=== PATIENT | male | born 1950 | race Caucasian/White ===

== ENCOUNTER 2016-11-28 00:59 | Day surgery (SDC) | payer MEDICARE, MEDICAID ==
[~2016-11-28] VITALS: Ht 177.8 cm; Wt 63.6 kg
[2016-11-28] VITALS (10 sets, daily range): BP systolic 118–149; BP diastolic 63–78; PULSE 52–61; RESP 16–17; O2SAT 96–98
[~2016-11-28 00:59] MED LIST: ALBU18HF INH; ATOR10TA66 PO; OXYC-466 PO; TERA10CA5 PO
[2016-11-28 10:24] LABS: BASOPHILS % (AUTO) 0.7 % (0-3); EOSINOPHILS % (AUTO) 6.6 % (0-5); MONOCYTES % (AUTO) 7.5 % (4-12); Mean Corpuscular Hemoglobin 29.5 pg (27.0-35.0); Mean Corpuscular Volume 91.5 fL (81-100); NEUTROPHILS % (AUTO) 72.8 % (40-74); Platelet Count 173 bil/L (150-400)
[2016-11-28 10:40] LABS: INR 1.06 ratio
[2016-11-28] MEDS ORDERED: Hydrocortisone 50 mg/mL 2 mL Inj ONE (10:57)
[2016-11-28] MEDS ORDERED: Hydrocortisone 50 mg/mL 2 mL Inj IV ONE (11:05)
[2016-11-28] MEDS ORDERED: Nitroglycerin 50 mg/250 mL D5W 50,000 MCG in IV Premix 1 EACH IV ONE (13:58)
[2016-11-28] MEDS ORDERED: HEPARIN IV ONE (13:58)
[2016-11-28] MEDS ORDERED: Heparin 1,000 Units/500 mL NS 1,000 UNIT in IV Premix 1 EACH IV ONE (13:58)
[2016-11-28] MEDS ORDERED: [UNRECOGNIZED DRUG - OTHER] IV ONE (13:58)
[2016-11-28] MEDS ORDERED: Heparin 1,000 Unit/mL 10 mL Inj IVPUSH ONE (14:02)
[2016-11-28] MEDS ORDERED: Heparin 1,000 Unit/mL 10 mL Inj ONE (14:06)
[2016-11-28] MEDS ORDERED: Heparin 5,000 Unit/mL Inj SUBQ ONE (14:08)
[2016-11-28] MEDS ORDERED: fentaNYL-PF 50 mCg/mL 2 mL Inj ONE (14:33)
[2016-11-28] MEDS ORDERED: Verapamil 2.5 mg/mL 2 mL Inj ONE (14:50)
--- NOTE | 2016-11-28 15:33 | PCM.CVCATH ---
Cardiac Cath Report Date of Service Nov 28, 2016 Primary Indication Non-sustained VT during stress test Procedure coronary angiography, left heart cath Vascular Access Right radial artery using 5 Fr slender sheath, closure with TR band. Diagnostic Catheters Left main: [place] 4.0, 5 Fr RCA: [place] 4.0, 5 Fr Procedure Details Coronary angiography details: The patient was brought to the cardiac catheterization lab in the fasting state. Patient was laid supine on the cardiac catheterization table and the right forearm was prepped and draped in the usual sterile fashion. One percent Xylocaine was infiltrated over the right radial artery. Vascular access was then achieved under ultrasound guidance. Guide wire was used to advance the catheter through the sheath and up into aortic sinuses. After coronary angiography was completed, guide wire was advanced through the catheter ahead of the tip of the catheter and the guide wire along with the catheter were pulled together out of the sheath. Medications/Fluoro Time Medications administered: 1.Fentanyl: 50 mcg IV 2. Midazolam: 2 mg IV 3. Heparin: 5000 units IV 4. Nitroglycerin: 700 mcg IA 5. Verapamil: 1 mg IA Due to contrast allergy, patient was pre-medicated with hydrocortisone 100mg IV X1 and benadryl 50mg IV X1 in the holding area prior to the start of the case. Fluoroscopy Time: 2.5 minutes, 313 mGy Contrast (Isovue): 70 mls Blood loss: 5 mls Findings 1) Coronary angiography: Right dominance a. Left main is normal caliber vessel with no angiogrpahic disease. b. LAD is normal caliber with mild luminal irregularities. There is a medium caliber diagonal artery with no angiographic disease. c. LCx is normal caliber with minimal luminal irregularities. There are two medium caliber obtuse marginal arteries with no angiographic disease. d. RCA is normal caliber tortuous vessel with plaque in the proximal vessel causing 20% stenosis. 2) Left Heart catheterization: a. LVEDP is normal at 13 mmHg. b. No significant transaortic gradient on catheter pull-back. Complications There were no periprocedural complications identified. Summary Non-obstructive disease with maximal stenosis of 20% in the proximal RCA. Recommendations Continue with primary prevention of coronary artery disease. copies to: Rah White MD; Silverio Ovalles MD, Bhrigu R MD Nov 28, 2016 15:33
--- NOTE | 2016-11-28 19:03 | NUR ---
Pt discharged to home, ambulatory, accompanied by friend. Pt's Rt radial puncture site CDI with trace amt of bruising, site is soft, no hematoma noted. Pt's VSS, IV's discontinued. Pt given all discharge instructions and had no further questions at time of d/c.
[2016-12-13] MEDS ORDERED: METO-272 PO (14:18)
== END 2016-11-28 23:59 | disposition home or self-care (01) ==
LOC: SOUO 00:59
PROVIDERS: ATTEND Internal Medicine Cardiovascular Disease
DX: I47.2 Ventricular tachycardia (principal); R07.9 Chest pain, unspecified; I25.10 Atherosclerotic heart disease of native coronary artery without angina pectoris; I10 Essential (primary) hypertension; E78.5 Hyperlipidemia, unspecified; F17.290 Nicotine dependence, other tobacco product, uncomplicated; J44.9 Chronic obstructive pulmonary disease, unspecified; Z91.041 Radiographic dye allergy status
CPT/HCPCS: 80048; 85025; 85610; 93458; 99152; 99153; C1769; C1887; C1894; J1200; J1720; J2250; J3010; Q9967

== ENCOUNTER 2016-12-18 08:26 | Day surgery (SDC) | payer MEDICARE, MEDICAID ==
[2016-12-18] VITALS (8 sets, daily range): BP systolic 112–166; BP diastolic 68–88; PULSE 57–74; RESP 13–16; O2SAT 96–100
[~2016-12-18] VITALS: Ht 177.8 cm; Wt 62.2 kg
[~2016-12-18 08:26] MED LIST changes: +CeFAZolin Inj 2 GM in IV Premix 1 EACH IV ONE; +METO-272 PO
[2016-12-18] MEDS ORDERED: fentaNYL-PF 50 mCg/mL 2 mL Inj ONE (08:27)
[2016-12-18] MEDS ORDERED: Propofol 10,000 mCg/mL 20 mL Inj ONE (08:27)
[2016-12-18] MEDS ORDERED: Ketamine 10 mg/mL 20 mL Inj ONE (08:27)
[2016-12-18] MEDS ORDERED: EPHEDrine/NS 5 mg/mL 5 mL Syringe ONE (08:27)
[2016-12-18] MEDS ORDERED: Ondansetron 2 mg/mL 2 mL Inj ONE (08:27)
[2016-12-18] MEDS ORDERED: Dexamethasone 4 mg/mL Inj ONE (08:27)
[2016-12-18] MEDS: Lactated Ringer's 1,000 ML IV SCH ×2 (09:19→11:04)
[2016-12-18] MEDS ORDERED: Bupivacaine-MPF 0.5% W/EPI 30 mL Inj INJ ONE (11:23)
--- NOTE | 2016-12-18 11:26 | PCM.HPANE ---
Patient Data Date of Service: December 18, 2016 Surgeon Admitting Provider: Attending Provider:Silverio Ovalles MD Primary Care Physician:Rah White MD Other Provider:Geraldine Ayala Anesthesia Reason for Visit Right Inguinal Hernia Ht/WT & BMI Height (Feet): 5 Height (Inches): 10 Weight (Kilograms): 62.2 Body Mass Index 19.00 Allergies Coded Allergies: Contrast Media (Verified Allergy, Intermediate, 11/28/16) itchiness, heart palpitations iodine (Unverified Allergy, Intermediate, SERVE HEART PALPATATIONS AND TROUBLE BREATHING, 06/30/10) furosemide (Verified Allergy, Unknown, 12/18/16) Past Anesthesia History Anesthesia History: Denies:: Anesthesia Reactions Diabetes History Hx Diabetes?: No MRSA MRSA: No Medications Blood Thinner: Aspirin Hypertension Medication: Yes Home Meds Incl Beta Romaine: Yes Date Beta Romaine Taken: December 18, 2016 Time Beta Romaine Taken: 0600 Reported Medications Metoprolol Succinate ER 50 Mg Tab.er.[id number] Mg PO DAILY Ref 0 12/13/16 Albuterol Sulfate (Ventolin HFA Inhaler)200 Puff/18 Gm Inhaler2 Puff INH Q4 PRN For Wheezing #1 INHALER Ref 0 11/27/16 Terazosin 10 Mg [id number] Mg PO HS Ref 0 11/27/16 oxyCODONE-Acetaminophen 10-325 mg 1 Each Tablet0.5-1 Tablet PO DAILY PRN For Pain Ref 0 11/27/16 Atorvastatin Calcium 10 Mg [id number] Mg PO DAILY Ref 0 11/27/16 History History of ENT Problems?: Yes HEENT History: Positive for:: Cataracts (surgically corrected) Denies:: Dysphagia Sinus Problem Denture Type: Full- Upper Teeth Condition: Broken Teeth No Teeth Tooth Decay Hx of Heart Problems?: Yes Cardiovascular History: Positive for:: Chest Pain Hypertension Irregular Heartbeat (suspected arhythmia that was self limiting) Denies:: Cardiac Surgery Congestive Heart Failure Edema Heart Murmur Hx of Respiratory Problem?: Yes Respiratory History: Positive for:: Asthma COPD Use of Inhalers / NEBS Denies:: Oxygen Administration Use of C-PAP Machine Hx Neurologic Problems?: Yes Neurological History: Positive for:: Headaches (distant history of migraines) Hx of GI Problems?: Yes Gastrointestinal History: Positive for:: Gastroesphageal Reflux Other GI Pertinent History: right inguinal hernia current admission problem Hx of Problems?: No HX of Peritoneal Dialysis: No Male Hx: Positive for:: Prostate Problems (bph/luts) Skin History: Denies:: History Skin Disorders? Hx Musculoskeletal Problems?: Yes Musculoskeletal History: Positive for:: Back Injury (laminectomy to L5) Osteoarthritis Denies:: Fibromyalgia Joint Replacement Hx of Psycho/Social Problems?: Yes Psycho Social History: Positive for:: Anxiety (situational) Hx Surgeries?: Yes (laminectomy, cataract repair) Hx Any Other Health Problems?: Yes Other History: Positive for:: Hospitalization Denies:: Cancer Thyroid Disease History Blood Transfusions: Denies:: Blood Transfuse Reaction Blood Transfusions Hx Diabetes: Yes Hx Alcohol Use: No (quit 2014)Hx Substance Use: No Smoking Status: Former Smoker Have You Smoked inLast 12 mo: No Stop/Bang Treated for Sleep Apnea?: No Do You Have a CPAP Machine?: No S-Snoring: Do You Snore Loudly: Yes T-Tired: feel tired, fatigued: No O-Obsered: Observed not breath: No P-Blood Pressure: treated: Yes B- Body Mass Index > 35 kg/m2: No A- Age over 50: Yes N- Neck Large Circumference: No G- Gender Male: Yes GUIDO Total Score: 3 GUIDO Risk Assessment: High Risk, =/>3 Yes Risk Assessment Category Category 1A: Patient has history of documented sleep apnea, and HAS NOT received any narcotic, sedative or anesthesia administration during this stay. Category 1B: Patient has history of documented sleep apnea, and HAS received any narcotic , sedative or anesthesia administration during this stay Category 2: Patient has SUSPECTED Obstructive Sleep Apnea, and HAS received any narcotic , sedative or anesthesia administration during this stay. Category 3: Patient has SUSPECTED Obstructive Sleep Apnea and HAS NOT received narcotic, sedative or anesthesia administration during this stay. Category 4: Outpatient in Procedural Areas with known sleep apnea or who screen positive for High Risk via the STOP/BANG questionnaire. Exam Exam Vital Signs Vital Signs Date Time Temp Pulse Resp B/P Pulse Ox O2 Delivery O2 Flow Rate FiO2 12/18/16 09:19 36.1 57 16 112/68 100 Room Air General Appearance: Alert, Oriented X3 HEENT/AIRWAY: MP 2 Lungs: Clear to Auscultation Heart: Exam Unremarkable Meds/Labs/Diagnostics Admission Meds Current Medications Lactated Ringer's (Lr) 1,000 ml @ 120 mls/hr Q8H20M IV Last administered on t 09:19; Start 12/18/16 at 05:00; Stop 12/18/16 at 13:19 Plan Impression Patient chart reviewed, patient interviewed and anesthestic plan with risks, benefits, and alternatives discussed, and informed consent obtained. NPO per Anesth. Guidelines: Yes ASA Physical Status: ASA3 Severe Disease Anesthetic Plan: GA Bene/Risks/Altern/Consents: Yes HP Complete Prior to Induction: Yes Other Patient has stopped taking Spiriva recently, using more albuterol instead. I inform him his risk of post-op respiratory complications is increased as a result and explain that he can be better optimized. He would like to proceed. I discuss with Dr. Ovalles as well, who is OK to proceed. I too am comfortable proceeding as his lungs sound clear, he is 96% on room air. I plan to use an LMA to decrease risks of instrumenting his airway. I believe that his perioperative risks are low enough that delaying his surgery which he has taken months to schedule is not warranted in the setting that I, the patient, and surgeon all understand the increased risks. Davide Orr MD December 18, 2016 11:26
[2016-12-18] MEDS ORDERED: Lactated Ringer's 1,000 ML IV SCH (11:29)
[2016-12-18] MEDS ORDERED: Lactated Ringer's 500 ML IV PRN (11:29)
[2016-12-18] MEDS ORDERED: fentaNYL-PF 50 mCg/mL 2 mL Inj IVPUSH PRN (11:30)
[2016-12-18] MEDS ORDERED: HYDROmorphone 1 mg/mL Inj IVPUSH PRN (11:30)
[2016-12-18] MEDS ORDERED: Ondansetron 2 mg/mL 2 mL Inj IVPUSH PRN (11:30)
[2016-12-18] MEDS ORDERED: EPHEDrine Sulfate 50 mg/mL Inj IVPUSH PRN (11:30)
[2016-12-18] MEDS ORDERED: Phenylephrine 10,000 mCg/mL Inj IVPUSH PRN (11:30)
[2016-12-18] MEDS ORDERED: Dexamethasone 4 mg/mL Inj IVPUSH PRN (11:30)
[2016-12-18] MEDS ORDERED: MetoCLOpramide 5 mg/mL 2 mL Inj IVPUSH PRN (11:30)
[2016-12-18] MEDS ORDERED: oxyCODONE-Acetamin 5-325 mg Tablet PO PRN (12:05)
--- NOTE | 2016-12-18 12:06 | PCM.DISURG ---
Surgical Discharge Instruction Date of Service December 18, 2016 Dates of Hospitalization Date of Hospital Admission Providers Admitting Physician: Primary Care Physician: Rah White MD Attending Physician: Silverio Ovalles MD Discharge Diagnosis Discharge Diagnosis Right inguinal hernia Diet Discharge Diet: No restrictions Activity Discharge Activity-General: No lifting >15 pounds for 2 weeks Dressing and Incisional Care Dressing Care: Allow Steri Stripes to fall off, Remove outer dressing after 24 hrs Hygiene: May shower after (24 hours) Follow Up Plan Follow Up Plan In the general surgery [place] postoperative clinic in 2-4 weeks Call your provider for: Fever (over 101.5), Vomiting, Discharge @ incision, pus discharge Silverio Ovalles MD December 18, 2016 12:06
--- NOTE | 2016-12-18 12:10 | PCM.SURGOP ---
Surgical Operative Report Date of Service: December 18, 2016 Pre Operative Diagnosis Right inguinal hernia Post Operative Diagnosis Indirect right inguinal hernia Procedure: Right inguinal hernia repair with mesh Surgeon and [place] Deckhand: Surgeon: Silverio Ovalles MD Assistants: Kt Gonsalez PA-C Indication for Procedure 66-year-old man who has had a long-standing right inguinal hernia, which has gotten bigger in size. He has to strain to have bowel movements, having multiple loose bowel movements per day. He does have a visible mass in the right groin which reduces when he wears a hernia belt. He has a history of chest pain, and underwent a full cardiac evaluation, which was essentially negative, and he was cleared to proceed with surgery. After discussion of risks and benefits, he agreed to proceed with right inguinal hernia repair with mesh. Findings: There was an indirect right inguinal hernia. The inguinal floor was slightly attenuated, but intact. Procedure Details After smooth induction of general anesthesia with an LMA, the patient was placed in the supine position, and was prepped and draped in wide sterile fashion. A procedural pause was performed according to the SCOAP checklist, and all were found to be in agreement. A transverse incision was made in the skin lines in the right groin. Dissection was carried out with electrocautery through the subcutaneous tissue. The superficial inferior epigastric vein was cauterized and divided. Alondra' s fascia was divided. The external oblique fascia was skeletonized down to the external inguinal ring. The external oblique fascia was opened sharply, taking care to avoid injury to the ilioinguinal nerve. The spermatic cord contents were encircled with a [place] drain. The inguinal floor was inspected. It was slightly attenuated laterally, but there was no direct defect. The spermatic cord was explored. There was a moderate sized cord lipoma which was dissected. There was a hernia sac anteromedially, which was dissected off the cord structures. It contained preperitoneal fat. It was reduced through the deep inguinal ring. A repair was then performed using the Bard 3 x 6" polypropylene mesh, which was cut to size. It was secured to the pubic tubercle, the shelving edge of the ilioinguinal ligament, the conjoined tendon. A slit was cut in the mesh to allow passage of the spermatic cord. The external oblique fascia was then closed over the mesh using a running 3-0 Vicryl suture. Alondra' s fascia was closed with an interrupted 3-0 Vicryl suture. The skin incision was closed with a running 4-0 Monocryl subcuticular stitch. Steri-Strips and sterile dressings were applied. At the end the case all needle and sponge counts were correct 2. The patient was awakened from anesthesia without difficulty, and taken to the recovery room in satisfactory condition, having tolerated the procedure well. Complications There were no periprocedural complications identified. Surgical Specimen Removed: No Specimen sent to Pathology: Not applicable Anesthetic Plan: GA Grafts, Implants: Implants-See Implant Record Output, Estimated Blood Loss: 10 Blood Administration during mayberry: No Drains: None Catheters: None copies to: Rah White MD, Joshua D MD December 18, 2016 12:09
--- NOTE | 2016-12-18 14:06 | PCM.ANEP1 ---
Post Anesthesia Phase 1 PACU Phase 1 Assessment Date of Service: December 18, 2016 Vital Signs Vital Signs Date Time Temp Pulse Resp B/P Pulse Ox O2 Delivery O2 Flow Rate FiO2 12/18/16 13:13 64 16 158/86 96 Room Air 12/18/16 12:35 69 16 143/83 97 Room Air 12/18/16 12:25 72 13 166/77 96 12/18/16 12:10 74 14 165/88 99 12/18/16 12:05 72 13 161/76 100 12/18/16 12:00 36.5 74 14 160/80 100 Room Air 12/18/16 09:19 36.1 57 16 112/68 100 Room Air Anesthetic Administered: GA Level of Alertness: Awake, talking Pain: No Nausea or Vomiting: No Oxygen Delivery: Room Air Lungs: Clear to Auscultation Complications: No Follow up Care: No Davide Orr MD December 18, 2016 14:06
== END 2016-12-18 23:59 | disposition home or self-care (01) ==
LOC: SAS 08:26
PROVIDERS: ATTEND Student in an Organized Health Care Education/Training Program
DX: K40.90 Unilateral inguinal hernia, without obstruction or gangrene, not specified as recurrent (principal); I10 Essential (primary) hypertension; E78.5 Hyperlipidemia, unspecified; J44.9 Chronic obstructive pulmonary disease, unspecified; F12.90 Cannabis use, unspecified, uncomplicated; K21.9 Gastro-esophageal reflux disease without esophagitis; K44.9 Diaphragmatic hernia without obstruction or gangrene; N40.0 Benign prostatic hyperplasia without lower urinary tract symptoms; M19.90 Unspecified osteoarthritis, unspecified site; I47.2 Ventricular tachycardia; F17.290 Nicotine dependence, other tobacco product, uncomplicated; Z86.010 Personal history of colon polyps; Z79.82 Long term (current) use of aspirin
CPT/HCPCS: 49505; 93005; C1781; J0690; J1100; J1885; J2405; J3010; J7120